=== PATIENT | female | born 1965 | race Caucasian/White ===

== ENCOUNTER 2022-08-25 16:30 | Emergency (ER) | payer OTHER ==
[~2022-08-25] VITALS: Ht 152.4 cm; Wt 75.7 kg
[2022-08-25 17:10] VITALS: O2SAT 100
== END 2022-08-25 18:59 | disposition home or self-care (01) ==
LOC: ER 17:14
DX: S80.02XA Contusion of left knee, initial encounter (principal); S80.01XA Contusion of right knee, initial encounter; M25.552 Pain in left hip; M79.641 Pain in right hand; W01.0XXA Fall on same level from slipping, tripping and stumbling without subsequent striking against object, initial encounter; Y93.01 Activity, walking, marching and hiking; Y92.512 Supermarket, store or market as the place of occurrence of the external cause; I10 Essential (primary) hypertension
CPT/HCPCS: 99284